=== PATIENT | male | born 1995 | race Caucasian/White ===

== ENCOUNTER 2022-04-19 07:12 | Emergency (ER) | payer OTHER, SELFPAY ==
--- NOTE | ~2022-04-19 | XR_ITS ---
EXAMINATION: XR CHEST CLINICAL INFORMATION: Cough. COMPARISON: None TECHNIQUE: 2 views of the chest were obtained. FINDINGS: No significant abnormality is noted involving the heart, lungs, mediastinum, bony thorax or soft tissues. XR/XR chest 2V IMPRESSION: Unremarkable chest examination.
[2022-04-19 07:31] VITALS: BP 131/92; PULSE 105; RESP 18; TEMP 37.4; O2SAT 98
--- NOTE | 2022-04-19 07:41 | ED_ITS ---
HPI - URI/Sore Throat General Chief Complaint: Upper Respiratory Symptoms Stated Complaint: Flu Symptoms Time Seen by Provider: 04/19/22 07:30 Mode of arrival: ambulatory Limitations: no limitations History of Present Illness HPI Narrative: This is a 27 years old man presented to the ED with cough , congestion flu-like symptoms x2 days, denies any fever chills vomiting and diarrhea MD elicited complaint: cough Onset (ago): day(s) (2) Consistency: constant Severity: moderate Description of mucous: clear Exacerbating factors: nothing Relieving factors: nothing Related Data Previous Rx's Medication Instructions Recorded dextromethorphan-guaifenesin 5 5 ml PO Q4-8H PRN cough #355 mL 04/19/22 mg-100 mg/5 mL oral liquid (Robitussin Cough-Chest Congestion DM) doxycycline monohydrate 100 mg 100 mg PO BID #14 caps 04/19/22 capsule (Monodox) Allergies Allergy/AdvReac Type Severity Reaction Status Date / Time Penicillins Allergy Hives Verified 04/19/22 07:33 Review of Systems Constitutional: Constitutional: Reports no additional constitutional complain ts ENT: Reports system reviewed and no additional complaints, except as documented Cardiovascular: Cardiovascular: Reports no additional cardiovascular complaints Respiratory: Respiratory: Reports cough Neurologic: Reports system reviewed and no additional complaints, except as documented Psychiatric: Psychiatric: Reports no additional psychiatric complaints PMFSH Social History Social History Smoked in Last 30 Days: No Use of substances other than those prescribed or required for medical reasons: No Advance Directives: No Physical Exam Vital Signs: Vital Signs: Last Vital Signs Temp 99.4 F 04/19/22 07:31 Pulse 101 H 04/19/22 08:51 Resp 18 04/19/22 08:51 BP 129/94 H 04/19/22 08:51 Pulse Ox 97 04/19/22 09:09 O2 Del Method 04/19/22 09:09 BMI result Body Mass Index 22.9 Const: Other: Nontoxic-appearing General: cooperative Nutritional Appearance: average body habitus and well nourished Orientation/consciousness: patient oriented x3 Limitations: no limitations HEENT: Head: Yes normal to inspection Ears: hearing grossly normal bilaterally General nose exam: Normal external nose present Face and sinus: Yes normal facial exam Mouth: Normal oral and palatal mucosa present Teeth and gingiva: dentition normal Throat: Yes posterior oropharynx normal Neck: Neck: Yes full ROM and Yes no lymphadenopathy Chest: Chest palpation & inspection: normal inspection of the chest Resp: Effort & Inspection: able to speak in complete sentences Auscultation: rhonchi Cardio: Jugular venous distension: no JVD Rate: regular rate Rhythm: regular rhythm GI: Inspection: Yes normal to inspection Palpation (GI): Soft to palpation : General: Yes no CVA tenderness Back/Spine/Pelvis: Back: no CVA tenderness Skin: General skin exam: no rashes or lesions noted, elasticity normal and turgor normal Lesions: no lesions Rashes: no rashes Neuro: General: patient oriented x3 Course Reevaluation(s) Reevaluation #1: feels better,CXR negative ,flu covid negative I think the patient can be discharged home a the sating 98% Time: 08:49 Medications Administered Discontinued Medications Generic Name Dose Route Start Last Admin Trade Name Freq PRN Reason Stop Dose Admin Acetaminophen 975 mg 04/19/22 07:40 04/19/22 08:48 Acetaminophen 325 Mg Tablet PO 04/19/22 07:41 975 mg ONCE ONE Administration Medical Decision Making Differential Diagnosis Differential Diagnoses: The differential diagnosis associated with the presentation includes pneumonia/covid/flu Admission/Observation Consideration of admission/observation: Escalation of care including admission/observation considered Lab Data MDM Lab Attestation statement: I reviewed the patient's lab results. Labs: Lab Results 04/19/22 04/19/22 Range/Units 07:40 07:40 COVID-19 ([facility]) Negative (Negative) COVID-19 Clin Com See Note Influenza Type A ([facility]) Negative (Negative) Influenza Type B ([facility]) Negative (Negative) Influenza A & B Note See Note Radiology Impression Discussion of test interpretation with radiology: I have reviewed the radiologist's reading. Radiologist Impression: CLINICAL INFORMATION: Cough. COMPARISON: None TECHNIQUE: 2 views of the chest were obtained. FINDINGS: No significant abnormality is noted involving the heart, lungs, mediastinum, bony thorax or soft tissues. XR/XR chest 2V IMPRESSION: Unremarkable chest examination. Dictated By: Marbin Joseph MD Signed By: <Electronically signed by Marbin Joseph MD in OV> 04/19/22 [id number] Independent Historian Clinical information obtained from an independent historian. History obtained from or confirmed by: Spouse Discharge Plan Discharge Clinical Impression: Bronchitis Patient Disposition: Home, Self-Care Instructions: Acute Bronchitis (ED) Additional Instructions: Drink plenty of fluid, rest, we call to prescription for you 1 is doxycycline an antibiotic the other 1 is a Robitussin with dextromethorphan for cough. Prescriptions: New doxycycline monohydrate [Monodox] 100 mg capsule 100 mg PO BID Qty: 14 0RF Robitussin Cough-Chest Cristobal DM 5-100 mg/5 mL liquid 5 ml PO Q4-8H PRN (Reason: cough) Qty: 355 0RF Referrals: Physician,None [Primary Care Provider] - 2 days Stand Alone Forms: Work/School Release Interventions: ED Discharge Assessment Last Done: 04/19/22 09:22 Discharge Date/Time: 04/19/22 09:23
[2022-04-19 08:03] LABS: COVID-19 Test Negative (Negative); IDNOW Serial# 16C4AD1C; IDNOW Serial# BCCEAD1C; Influenza A Negative (Negative); Influenza B2 Negative (Negative)
[2022-04-19] MEDS: Acetaminophen 325 MG TABLET 975 MG PO (08:48)
[2022-04-19 08:49] VITALS: BMI 22.9
[2022-04-19 08:51] VITALS: BP 129/94; PULSE 101; RESP 18; O2SAT 97
[2022-04-19 09:09] VITALS: O2SAT 97
== END 2022-04-19 09:23 | disposition home or self-care (01) ==
PROVIDERS: Emergency Provider Emergency Medicine
DX: J40 Bronchitis, not specified as acute or chronic (principal); R05.9 Cough, unspecified; R50.9 Fever, unspecified; Z20.822 Contact with and (suspected) exposure to COVID-19
CPT/HCPCS: 71046; 87502; 87635; 99283; 99284